=== PATIENT | male | born 1950 | race Caucasian/White ===

== ENCOUNTER 2021-06-27 12:09 | Observation (INO) | payer MEDICARE, OTHER, SELFPAY ==
[2021-06-27] VITALS (9 sets, daily range): BP systolic 118–178; BP diastolic 65–86; PULSE 77–93; RESP 18; TEMP 37.1–38; O2SAT 93–96
[2021-06-27 12:51] LABS: Clarity Clear (Clear)
[2021-06-27 13:07] LABS: Specific Gravity 1.005 (1.005-1.025)
[2021-06-27 13:31] LABS: Abs Immature Grans 0.07 10^3/uL (0.0-0.06); Absolute Monocyte Count 1.34 10^3/uL (0.1-0.8); Absolute Neutrophil Count 11.73 10^3/uL (1.2-6.7); Basophils % 0.1; Eosinophils % 0.4; HCT 38.2 % (40.0-50.0); HGB 13.4 g/dL (13.5-17.5); Immature Grans % 0.5; Lymphocytes % 6.4; MCH 29.7 pg (27.0-33.0); MCHC 35.1 % (32.0-36.0); MCV 84.7 fL (80-95); MPV 8.9 fL (8.0-11.0); Monocytes % 9.5; Neutrophils % 83.1; Nucleated RBC 0 %; Platelet Count 191 10^3/uL (130-400); RBC 4.51 10^6/uL (4.36-5.78); RDW 13.2 % (11.8-14.1); RDW-SD 40.9 fL; WBC 14.11 10^3/uL (4.4-10.8)
[2021-06-27 13:34] LABS: Absolute Basophil Count 0.01 10^3/uL (0.0-0.2); Absolute Eosinophil Count 0.06 10^3/uL (0.0-0.7)
[2021-06-27 13:44] LABS: ALT 156 U/L (16-63); AST 90 U/L (15-37); Albumin 3.9 g/dL (3.4-5.0); Alkaline Phosphatase 118 U/L (46-116); Anion Gap 10.8 mmol/L (3-11); BUN 5 mg/dL (7-18); Bilirubin, Direct 0.2 mg/dL (0.0-0.2); Bilirubin, Total 1.2 mg/dL (0.2-1.0); CO2 26.2 mmol/L (21.0-32.0); CREATININE 0.8 mg/dL (0.70-1.30); Calcium 8.8 mg/dL (8.5-10.1); Chloride 97 mmol/L (98-107); Glucose 143 mg/dL (74-106); Potassium 3.2 mmol/L (3.5-5.1); Sodium 134 mmol/L (136-145); Total Protein 7.3 g/dL (6.4-8.2)
--- NOTE | 2021-06-27 14:04 | DI.CT_ITS ---
Exam(s) CT ABDOMEN PELVIS W EXAM: CT ABDOMEN PELVIS W CLINICAL HISTORY: pelvic pain, fever TECHNIQUE: Imaging Protocol: Axial computed tomography images with coronal and sagittal reformatted images were created and reviewed CONTRAST MATERIAL: Intravenous: Omnipaque 350 Contrast volume:100 mL Oral: No COMPARISON: No exams were available for comparison FINDINGS: The examination is limited due to patient motion artifact. ABDOMEN: Lung Bases: Normal where visualized. Liver: Normal density. No measurable mass. Portal, Superior Mesenteric, and Splenic Veins: Unremarkable. Gallbladder and Biliary Tract: No radiodense calculus or dilation. Pancreas: Normal density, no abnormal calcifications or inflammatory process. Spleen: Normal. Adrenals: No masses seen. Kidneys: Normal size, contour and axis. There is a 3 mm stone at the right UVJ. No significant dilat ation of the right renal collecting system is seen there is symmetric and normal enhancement of the r ight kidney. No masses seen. Abdominal Aorta: Abdominal portion non-dilated. Atherosclerosis. Bowel: No obstruction or bowel wall thickening. No evidence of appendicitis. There are few scattered diverticula in the sigmoid colon, but no evidence of acute diverticulitis. Peritoneal Cavity: No ascites, collection or mesenteric inflammatory response. No free air. Lymph Nodes: Within normal limits. Bones: Within normal limits for the patient's age. Soft Tissues: Unremarkable. PELVIS: Bladder: Symmetric distention, no gross wall thickening. Reproductive Organs: The prostate gland is enlarged. There is mild infiltration around the prostate gland and seminal vesicles. No focal fluid collection is seen to suggest an abscess. Lymph Nodes: Within normal limits. Bones: Within normal limits for the patient's age. IMPRESSION: 1. 3 mm stone at the ostia of the right UVJ, but no hydronephrosis or decreased renal enhancement is noted. 2. Enlarged prostate gland with infiltration in the surrounding soft tissues and the seminal vesicle suspicious for prostatitis. 3. No abscess is identified. 4. Results of this exam have been verbally communicated with provider. RADIATION DOSE DELIVERED: 792.87mGy.cm Total DLP DATA REPOSITORY: All CT scans at this facility are submitted to the National Radiology Data Registry (NRDR) Dose Index Registry (DIR) with the [employer] (ACR). RADIATION OPTIMIZATION: All CT scans at this facility use at least one of these dose optimization te chniques: automated exposure control; mA and/or kV adjustment per patient size (includes targeted exa ms where dose is matched to clinical indication); or iterative reconstruction.
[2021-06-27] MEDS: Omnipaque 350 MG/ML 100 ML BTL IJ (14:09)
--- NOTE | 2021-06-27 14:30 | RT.EKG_ITS ---
APPROVED REPORT Exam: Resting ECG Reason for Exam: hypokalemia, fluoroquinolone initiation Patient Location: E HR:98 bpm ECG Measurements Heart Rate 98 AXIS [place] 170 P 59 QRSd 173 QRS -94 QT 393 T 51 QTc 501 Conclusion Sinus rhythm...normal P axis, V-rate 60- 99 Right bundle branch block...QRSd>120, terminal axis(90,270) ST elevation secondary to IVCD...Multiple VCG criteria. Sinus. RBBB. No STEMI. I have reviewed and interpreted ECG and agree with software generated interpretation.
[2021-06-27] MEDS: fentaNYL 100 MCG/2 ML VIAL 50 MCG IVP (14:34)
[2021-06-27] MEDS: Tamsulosin 0.4 MG CAPCR 0.8 MG PO (15:03)
[2021-06-27] MEDS: POTASSIUM CHLORIDE 20 MEQ, POTASSIUM CHLORIDE 10 MEQ 30 MEQ PO (15:03)
--- NOTE | 2021-06-27 15:04 | ED.GENADUL_ITS ---
Discharge Plan Disposition Patient Disposition: [facility] INPATIENT Condition: Improving Discharge Details Clinical Impression: Prostatitis, Elevated troponin Admit Date/Time: 06/27/21 17:17 Admit Provider: Natalie Frausto Attending Provider: Natalie Frausto Primary Care Provider: Saul Nunez ED Provider: Eric Macias Discharge Data Discharge Date/Time-TO BE ENTERED AT DEPARTURE: 06/27/21 19:16 Medical Decision Making Patient is quite uncomfortable, initial bladder scan 562 Up-to-date recommendation not to place Robertson catheter and patient with suspected bacterial prostatitis, and therefore discussed case with Donna Phelan, physician assistant professor sculpture on-call for urology who recommends the patient is not significantly uncomfortable and CT scan does not show evidence of hydronephrosis to refrain from Robertson catheter placement CT scan does not show evidence of hydronephrosis, patient has a left UVJ stone Previous urine culture positive for Klebsiella pneumonia Repeat bladder scan performed and patient now has 800 cc of fluid in his bladder, therefore quite uncomfortable and Robertson catheter was placed, discussed risk and benefit of Robertson catheter placement and patient agrees to be Levaquin 500 mg ordered Patient meets sepsis criteria with leukocytosis 14,000, tachycardia at 91 upon arrival, and suspected source of infection is prostatitis At this time especially with left UVJ stone I think patient warrants overnight admission for observation He is comfortable with this plan He is feeling symptomatically improved after Robertson catheter placement ED EKG was abnormal with right bundle branch block, no prior to compare for troponin was ordered, unfortunately troponin is elevated at 103, will repeat troponin at 1620 and likely admit patient given elevated troponin, this is likely secondary to strain from being ill prostatitis and urinary retention He will likely need admission to the hospital care will be transferred to Eric Macias PA-C 1600 pending repeat troponin and likely admission to the hospital Eric Macias PA-C 1600 I assumed care of this 70-year-old gentleman from my colleague SERGIO Byrd, please refer to her initial HPI and examination. At time of signout awaiting repeat troponin, initial troponin was 103. Repeat troponin is 101. Patient reports generally not feeling well, nausea, vomiting but denies any overt chest pain. Patient tells me that in 2005 he had a triple bypass with a valve replacement. Patient states that he has not had a stress test since that time but did actually have an echo as an outpatient through his cardiology team, Dr. Cardoso, last month. Given his elevated troponin, will discuss the case with our hospitalist team to admit for a cardiac rule out. Case was discussed with Dr. Frausto who is agreeable to observation admission. This documentation was generated using [employer] dictation system, please disregard any oddities of phrase or misspellings. Medical Records Medical records reviewed: Yes I reviewed the patient's medical records. Lab Data Lab results reviewed: Yes I reviewed the patient's lab results. ECG Data Prior ECG tracings: available for review HPI General Date/Time Provider Initiated Documentation: 06/27/21 12:42 . HPI Narrative: This 70-year-old gentleman with history of tubular adenoma,, hyperlipidemia, hypertension, aortic stenosis, palpitations presents with suprapubic tenderness, and urinary retention. Diagnosed with likely bacterial prostatitis with Klebsiella in urine culture on Flonase. Been taking Cipro twice a day scribe. Feels better symptoms are worsening. Unsure if whether or not he has had fever at home. Reports chills. Denies any chest pain or shortness of breath. Denies any dizziness or weakness. Denies history of similar symptoms in the past. Denies any nausea or vomiting. Related Data Home Medications Medication Instructions Recorded Confirmed amlodipine 10 mg tablet 10 mg PO DAILY 06/27/21 06/27/21 aspirin 81 mg tablet,delayed 81 mg PO DAILY 06/27/21 06/27/21 release atorvastatin 10 mg tablet (Lipitor) 10 mg PO DAILY 06/27/21 06/27/21 ciprofloxacin HCl 500 mg tablet 500 mg PO BID 06/27/21 06/27/21 (Cipro) ibuprofen 600 mg tablet 600 mg PO TID PRN 06/27/21 06/27/21 magnesium 250 mg tablet 250 mg PO DAILY 06/27/21 06/27/21 metoprolol succinate 50 mg 50 mg PO DAILY 06/27/21 06/27/21 tablet,extended release 24 hr phenazopyridine 200 mg tablet 200 mg PO TID PRN 06/27/21 06/27/21 (Pyridium) sildenafil 100 mg tablet (Viagra) 50 mg PO DAILY PRN 06/27/21 06/27/21 tamsulosin 0.4 mg capsule 0.4 mg PO DAILY 06/27/21 06/27/21 Allergies Allergy/AdvReac Type Severity Reaction Status Date / Time amoxicillin AdvReac vomiting Unverified 06/27/21 19:07 General Stated Complaint: Urinary BANDAR: 3 Review of Systems All systems reviewed & are unremarkable except as noted in HPI and below PFSH All Active Problems (Updated 06/29/21 @ 00:01 by CORY LOPEZ) RBBB (Acute) Prostatitis (Acute) Medical History Aortic stenosis CAD (coronary artery disease) Hyperlipidemia Hypertension Palpitations TIA (transient ischemic attack) Tubular adenoma Surgical History Hx of colonoscopy S/P aortic valve replacement with bioprosthetic valve S/P CABG x 3 [place] [facility] [place] History Father Heart disease Cancer prostate cancer Brother Heart disease Hypertension Mother Cancer unknown type Social History Smoking/Tobacco Use Status: Former Tobacco Use tobacco type: cigarettes Quit Date: 03/23/79 Pack-years: 5 Tobacco: How many years used: 5 Smoking risk assessment performed?: Yes Alcohol Intake: current Alcohol Intake frequency: 0-2 drinks per day Alcohol type: hard liquor Details: no h/o EtOH withdrawal Drug use: Never Substance use type: does not use Do you feel safe at home: Yes Do you feel safe in your relationship?: Yes Exam Const General: cooperative and no acute distress Chest Chest: normal inspection of the chest Resp Effort & Inspection: normal respiratory effort Auscultation: clear to auscultation bilaterally Cardio Rate: regular rate Rhythm: regular rhythm GI Inspection: normal to inspection Other: mild suprapubic tenderness Other: deferred Skin General skin exam: no rashes or lesions noted Neuro General: patient alert and patient oriented x3 Extrem General: normal to inspection Course Vital Signs Vital signs: Vital Signs Temperature 37.2 C 06/27/21 12:15 Pulse 91 H 06/27/21 12:15 Respiratory Rate 18 06/27/21 12:15 Blood Pressure 178/86 H 06/27/21 12:15 Pulse Oximetry 94 06/27/21 12:15 Temperature 37.2 C 06/27/21 13:57 Temperature Source Oral 06/27/21 13:57 Pulse 90 06/27/21 13:57 Respiratory Rate 18 06/27/21 12:15 Respiratory Effort 06/27/21 12:20 Blood Pressure 149/80 H 06/27/21 13:57 Blood Pressure Position Sitting 06/27/21 12:15 Pulse Oximetry 94 06/27/21 13:57 Oxygen Delivery Method Room Air 06/27/21 13:57 Oxygen Flow Rate 0 06/27/21 13:57 Pain Level 10 06/27/21 14:34 Lab/Test Results Lab/Test Results: 06/27/21 13:50 Blood Blood Culture - Pending 06/27/21 13:19 Blood Blood Culture - Pending 06/27/21 12:41 Urine - Clean Catch Urine Culture - Pending Laboratory Tests Range/Units 06/27/21 06/27/21 06/27/21 12:41 13:19 13:19 WBC (4.4-10.8) 10^3/uL RBC (4.36-5.78) 10^6/uL Hgb (13.5-17.5) g/dL Hct (40.0-50.0) % MCV (80-95) fL MCH (27.0-33.0) pg MCHC (32.0-36.0) % RDW (11.8-14.1) % Plt Count (130-400) 10^3/uL MPV (8.0-11.0) fL Immature Gran % Neutrophils % Lymphocytes % Monocytes % Eosinophils % Basophils % Nucleated RBC % % Absolute Neutrophils (1.2-6.7) 10^3/uL Absolute Lymphocytes (1.2-3.4) 10^3/uL Absolute Monocytes (0.1-0.8) 10^3/uL Absolute Eosinophils (0.0-0.7) 10^3/uL Absolute Basophils (0.0-0.2) 10^3/uL VBG Lactate (0.6-1.4) mmol/L 1.0 Sodium (136-145) mmol/L 134 L Potassium (3.5-5.1) mmol/L 3.2 L Chloride (98-107) mmol/L 97 L Carbon Dioxide (21.0-32.0) mmol/L 26.2 Anion Gap (3-11) mmol/L 10.8 BUN (7-18) mg/dL 5 L Creatinine (0.70-1.30) mg/dL 0.8 Estimated GFR/1.73 m2 (mL/min/1.73m2) >= 60.00 Glucose (74-106) mg/dL 143 H Calcium (8.5-10.1) mg/dL 8.8 Total Bilirubin (0.2-1.0) mg/dL 1.2 H Conjugated Bilirubin (0.0-0.2) mg/dL 0.2 AST (15-37) U/L 90 H ALT (16-63) U/L 156 H Alkaline Phosphatase (46-116) U/L 118 H Total Protein (6.4-8.2) g/dL 7.3 Albumin (3.4-5.0) g/dL 3.9 Urine Color (Yellow) [place] Urine Clarity (Clear) Clear Urine pH (5-8) Ur Specific [place] (1.005-1.025) 1.005 Urine Protein (Negative) mg/dL Urine Ketones (Negative) mg/dL Urine Blood (Negative) Urine Nitrite (Negative) Urine Bilirubin (Negative) Urine Urobilinogen (Up TO 0.2) EU/dL Ur Leukocyte Esterase (Negative) Urine Glucose (Negative) mg/dL Range/Units 06/27/21 13:19 WBC (4.4-10.8) 10^3/uL 14.11 H RBC (4.36-5.78) 10^6/uL 4.51 Hgb (13.5-17.5) g/dL 13.4 L Hct (40.0-50.0) % 38.2 L MCV (80-95) fL 84.7 MCH (27.0-33.0) pg 29.7 MCHC (32.0-36.0) % 35.1 RDW (11.8-14.1) % 13.2 Plt Count (130-400) 10^3/uL 191 MPV (8.0-11.0) fL 8.9 Immature Gran % 0.5 Neutrophils % 83.1 Lymphocytes % 6.4 Monocytes % 9.5 Eosinophils % 0.4 Basophils % 0.1 Nucleated RBC % % 0 Absolute Neutrophils (1.2-6.7) 10^3/uL 11.73 H Absolute Lymphocytes (1.2-3.4) 10^3/uL 0.90 L Absolute Monocytes (0.1-0.8) 10^3/uL 1.34 H Absolute Eosinophils (0.0-0.7) 10^3/uL 0.06 Absolute Basophils (0.0-0.2) 10^3/uL 0.01 VBG Lactate (0.6-1.4) mmol/L Sodium (136-145) mmol/L Potassium (3.5-5.1) mmol/L Chloride (98-107) mmol/L Carbon Dioxide (21.0-32.0) mmol/L Anion Gap (3-11) mmol/L BUN (7-18) mg/dL Creatinine (0.70-1.30) mg/dL Estimated GFR/1.73 m2 (mL/min/1.73m2) Glucose (74-106) mg/dL Calcium (8.5-10.1) mg/dL Total Bilirubin (0.2-1.0) mg/dL Conjugated Bilirubin (0.0-0.2) mg/dL AST (15-37) U/L ALT (16-63) U/L Alkaline Phosphatase (46-116) U/L Total Protein (6.4-8.2) g/dL Albumin (3.4-5.0) g/dL Urine Color (Yellow) Urine Clarity (Clear) Urine pH (5-8) Ur Specific [place] (1.005-1.025) Urine Protein (Negative) mg/dL Urine Ketones (Negative) mg/dL Urine Blood (Negative) Urine Nitrite (Negative) Urine Bilirubin (Negative) Urine Urobilinogen (Up TO 0.2) EU/dL Ur Leukocyte Esterase (Negative) Urine Glucose (Negative) mg/dL Sign Out Sign Out Data: Sign Out Comment: pending troponin, admission for nstemi and prostatis Last updated by Sonali Byrd PA at 06/27/21 16:47 PAWSS Have you Been Recently Intoxicated or Drunk Within the Last 30 days?: No Have you Ever Experienced Previous Episodes of Alcohol Withdrawal?: No Have you ever Experienced Withdrawal Seizures?: No Have you ever Experienced Delirium Tremens(DT)s?: No Have you ever undergone Alcohol Rehabilitation Treatment (i.e, inpt ot outpatient treatment programs)?: No Have you ever Experienced Blackouts?: No Have you ever Combined Alcohol with other Downers within the last 90 days?: No Have you ever Combined Alcohol with any other Substance of Abuse during the last 90 days?: No Positive Blood Alcohol level on Presentation? [PCS.BAL]: No Evidence of Increased Autonomic Activity (i.e. HR>120, tremor, sweating, agitation, nausea)?: No Result: 0
[2021-06-27] MEDS: levoFLOXacin 500 MG/100 ML BAG 100 MG IVPB (15:06)
[2021-06-27] MEDS: Lidocaine 2% Jelly 11 ML SYR UR (15:10)
[2021-06-27 15:31] LABS: Troponin I 103 ng/L (<or=60)
[2021-06-27] MEDS: Normal Saline 1,000 ML 1000 ML IV (15:46)
[2021-06-27 16:46] LABS: Troponin I 101 ng/L (<or=60)
[2021-06-27 17:49] LABS: Source Nasal/Nares
[2021-06-27 18:26] LABS: COVID-19 PCR Negative (Negative)
[2021-06-27] MEDS: Acetaminophen 325 MG TAB PO ×2 (18:51→22:28)
--- NOTE | 2021-06-27 19:15 | W.PM.HP.N ---
Date of service: 06/27/21 Time of Service: 19:16 Assessment and Plan Assessment and plan (1) Prostatitis: Status: Acute Assessment and plan: Due to Klebsiella, present on admission, sensitive to fluoroquinolones.Agree with continuing levofloxacin initiated in the ED. Will need urology follow up. I am not sure if we have urology in house tomorrow. (2) Elevated troponin: Status: Acute Assessment and plan: Suspect type 2 NSTEMI due to acute infection. [place]btain [place] [facility] [place]. Echo tomorrow. 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 (3) RBBB: Status: Acute Assessment and plan: Unsure of chronicity of this, nor is it an indication of acute ischemia. Obtain [facility] [place]. (4) Urinary retention: Status: Acute Assessment and plan: S/p hubbard. Perform hubbard teaching. Started on flomax. Urology consult vs outpatient follow up depending on urology availability. (5) DVT prophylaxis: Status: Acute Assessment and plan: SC lovenox (6) Discharge planning issues: Status: Acute Assessment and plan: Full code Anticipate discharge home tomorrow History of Present Illness History of Present Illness Chief Complaint: Suprapubic tenderness Narrative: Mr Santos is a 70 year old male recently diagnosed with Klebsiella prostatitis ([facility] 06/23/21) with PMHx of CAD s/p CABG x 3 in [place] [place] TIA, HTN, hyperlipidemia, Aortic stenosis s/p bioprosthetic aortic valve, and tubular adenoma, who presented to [facility] ED today c/o suprapubic tenderness and found to be retaining urine (800 cc). The patient had initially presented to his PCP's office who referred him to our ED with these sx. A hubbard catheter was placed for urinary retention. His imagine revealed a left UVJ stone. The patient was afebrile and had a leucocytosis of 14. A screening EKG was obtained prior to giving the patient floroquinolone in the ED which revealed a RBBB. A screening troponin was ordered which was 103 ng/L. The patient specifically denies chest pain, shortness of breath, palpitations at home. Repeat troponin was 101. Observation on hospitalist service was requested. Review of Systems All systems reviewed & are unremarkable except as noted in HPI and below PFSH All Active Problems (Updated 06/27/21 @ 19:54 by Natalie Frausto MD) Discharge planning issues (Acute) DVT prophylaxis (Acute) Urinary retention (Acute) RBBB (Acute) Prostatitis (Acute) Elevated troponin (Acute) Medical History (Updated 06/27/21 @ 19:54 by Natalie Frausto MD) Aortic stenosis CAD (coronary artery disease) Hyperlipidemia Hypertension Palpitations TIA (transient ischemic attack) Tubular adenoma Surgical History (Updated 06/27/21 @ 19:54 by Natalie Frausto MD) Hx of colonoscopy S/P aortic valve replacement with bioprosthetic valve S/P CABG x 3 2016 [facility] [place] Family History (Updated 06/27/21 @ 19:55 by Natalie Frausto MD) Father Heart disease Cancer prostate cancer Brother Heart disease Hypertension Mother Cancer unknown type Social History (Updated 06/27/21 @ 19:56 by Natalie Frausto MD) Smoking/Tobacco Use Status: Former Tobacco Use tobacco type: cigarettes Quit Date: 03/23/79 Pack-years: 5 Tobacco: How many years used: 5 Smoking risk assessment performed?: Yes Alcohol Intake: current Alcohol Intake frequency: 0-2 drinks per day Alcohol type: hard liquor Details: no h/o EtOH withdrawal Drug use: Never Substance use type: does not use Do you feel safe at home: Yes Do you feel safe in your relationship?: Yes Meds Allergies and Home Medications Allergies Allergy/AdvReac Type Severity Reaction Status Date / Time amoxicillin AdvReac vomiting Unverified 06/27/21 19:07 Home Medications Medication Instructions Recorded Confirmed Type amlodipine 10 mg tablet 10 mg PO DAILY 06/27/21 06/27/21 History aspirin 81 mg tablet,delayed 81 mg PO DAILY 06/27/21 06/27/21 History release atorvastatin 10 mg tablet (Lipitor) 10 mg PO DAILY 06/27/21 06/27/21 History ciprofloxacin HCl 500 mg tablet 500 mg PO BID 06/27/21 06/27/21 History (Cipro) ibuprofen 600 mg tablet 600 mg PO TID PRN 06/27/21 06/27/21 History magnesium 250 mg tablet 250 mg PO DAILY 06/27/21 06/27/21 History metoprolol succinate 50 mg 50 mg PO DAILY 06/27/21 06/27/21 History tablet,extended release 24 hr phenazopyridine 200 mg tablet 200 mg PO TID PRN 06/27/21 06/27/21 History (Pyridium) sildenafil 100 mg tablet (Viagra) 50 mg PO DAILY PRN 06/27/21 06/27/21 History tamsulosin 0.4 mg capsule 0.4 mg PO DAILY 06/27/21 06/27/21 History Exam Narrative Exam Narrative: General: Very pleasant male who is A&ox3, appears comfortable in bed Neurological: A&Ox3, no focal deficits Psychiatric: Appropriate speech pattern/content Skin: Visible skin intact HEENT: Atraumatic, normocephalic, EOMI, MMM, clear oropharynx, no submandibular or cervical lymphadenopathy, no goiter or JVD Cardiovascular: RRR, no m/r/g Lungs: CTAB Gastrointestinal: soft, nontender, nondistended Genitourinary: has a hubbard Extremities: no edema BLE's, 1+ pedal pulses B Results Imaging Additional studies: CT abdomen/pelvis: 1. 3 mm stone at the ostia of the right UVJ, but no hydronephrosis or decreased renal enhancement is noted. 2. Enlarged prostate gland with infiltration in the surrounding soft tissues and the seminal vesicle suspicious for prostatitis. 3. No abscess is identified. EKG: ST, RBBB, no prior for comparison, no acute ischemia Labs Result diagrams: 06/27/21 13:19 06/27/21 13:19 Labs: Laboratory Results - last 24 hr 06/27/21 06/27/21 06/27/21 12:41 13:19 13:19 WBC RBC Hgb Hct MCV MCH MCHC RDW Plt Count MPV Immature Gran % Neutrophils % Lymphocytes % Monocytes % Eosinophils % Basophils % Nucleated RBC % Absolute Neutrophils Absolute Lymphocytes Absolute Monocytes Absolute Eosinophils Absolute Basophils VBG Lactate 1.0 Sodium 134 L Potassium 3.2 L Chloride 97 L Carbon Dioxide 26.2 Anion Gap 10.8 BUN 5 L Creatinine 0.8 Estimated GFR/1.73 m2 >= 60.00 Glucose 143 H Calcium 8.8 Total Bilirubin 1.2 H Conjugated Bilirubin 0.2 AST 90 H ALT 156 H Alkaline Phosphatase 118 H Troponin I Total Protein 7.3 Albumin 3.9 Urine Color [place] Urine Clarity Clear Urine pH Ur Specific [place] 1.005 Urine Protein Urine Ketones Urine Blood Urine Nitrite Urine Bilirubin Urine Urobilinogen Ur Leukocyte Esterase Urine Glucose COVID-19 Source SARS-CoV-2 (PCR) 06/27/21 06/27/21 06/27/21 13:19 13:19 16:20 WBC 14.11 H RBC 4.51 Hgb 13.4 L Hct 38.2 L MCV 84.7 MCH 29.7 MCHC 35.1 RDW 13.2 Plt Count 191 MPV 8.9 Immature Gran % 0.5 Neutrophils % 83.1 Lymphocytes % 6.4 Monocytes % 9.5 Eosinophils % 0.4 Basophils % 0.1 Nucleated RBC % 0 Absolute Neutrophils 11.73 H Absolute Lymphocytes 0.90 L Absolute Monocytes 1.34 H Absolute Eosinophils 0.06 Absolute Basophils 0.01 VBG Lactate Sodium Potassium Chloride Carbon Dioxide Anion Gap BUN Creatinine Estimated GFR/1.73 m2 Glucose Calcium Total Bilirubin Conjugated Bilirubin AST ALT Alkaline Phosphatase Troponin I 103 H* 101 H* Total Protein Albumin Urine Color Urine Clarity Urine pH Ur Specific [place] Urine Protein Urine Ketones Urine Blood Urine Nitrite Urine Bilirubin Urine Urobilinogen Ur Leukocyte Esterase Urine Glucose COVID-19 Source SARS-CoV-2 (PCR) 06/27/21 17:40 WBC RBC Hgb Hct MCV MCH MCHC RDW Plt Count MPV Immature Gran % Neutrophils % Lymphocytes % Monocytes % Eosinophils % Basophils % Nucleated RBC % Absolute Neutrophils Absolute Lymphocytes Absolute Monocytes Absolute Eosinophils Absolute Basophils VBG Lactate Sodium Potassium Chloride Carbon Dioxide Anion Gap BUN Creatinine Estimated GFR/1.73 m2 Glucose Calcium Total Bilirubin Conjugated Bilirubin AST ALT Alkaline Phosphatase Troponin I Total Protein Albumin Urine Color Urine Clarity Urine pH Ur Specific [place] Urine Protein Urine Ketones Urine Blood Urine Nitrite Urine Bilirubin Urine Urobilinogen Ur Leukocyte Esterase Urine Glucose COVID-19 Source Nasal/Nares SARS-CoV-2 (PCR) Negative Last Vital Signs Temp 37.1 C 06/27/21 18:30 Pulse 93 H 06/27/21 18:30 Resp 18 06/27/21 12:15 BP 122/83 06/27/21 18:30 Pulse Ox 96 06/27/21 18:30 PAWSS Have you Been Recently Intoxicated or Drunk Within the Last 30 days?: No Have you Ever Experienced Previous Episodes of Alcohol Withdrawal?: No Have you ever Experienced Withdrawal Seizures?: No Have you ever Experienced Delirium Tremens(DT)s?: No Have you ever undergone Alcohol Rehabilitation Treatment (i.e, inpt ot outpatient treatment programs)?: No Have you ever Experienced Blackouts?: No Have you ever Combined Alcohol with other Downers within the last 90 days?: No Have you ever Combined Alcohol with any other Substance of Abuse during the last 90 days?: No Positive Blood Alcohol level on Presentation? [PCS.BAL]: No Evidence of Increased Autonomic Activity (i.e. HR>120, tremor, sweating, agitation, nausea)?: No Result: 0
[2021-06-27 19:28] LABS: Bacteria Negative HPF (Negative); Epithelial Cells Few HPF (Negative); RBC Negative HPF (0-2); WBC Negative HPF (0-5)
[2021-06-27 19:29] LABS: Casts Negative LPF (Negative); Crystals Negative HPF (Negative); Mucus Trace (Negative)
[2021-06-27 19:31] LABS: C & S Indicated? C&S Done As Ordered
[2021-06-27] MEDS: Atorvastatin 20 MG TAB 10 MG PO (20:37)
[2021-06-27] MEDS: Enoxaparin 40 MG/0.4 ML SYR SC (20:38)
[2021-06-28 03:04] VITALS: BP 138/75; PULSE 77; RESP 18; TEMP 36.9; O2SAT 95
[2021-06-28 06:48] LABS: Abs Immature Grans 0.08 10^3/uL (0.0-0.06); Absolute Eosinophil Count 0.06 10^3/uL (0.0-0.7); Absolute Lymphocyte Count 0.87 10^3/uL (1.2-3.4); Absolute Neutrophil Count 10.64 10^3/uL (1.2-6.7); Basophils % 0.2; Eosinophils % 0.5; HCT 37.3 % (40.0-50.0); HGB 12.9 g/dL (13.5-17.5); Immature Grans % 0.6; Lymphocytes % 6.9; MCH 29.9 pg (27.0-33.0); MCHC 34.6 % (32.0-36.0); MCV 86.3 fL (80-95); MPV 9.2 fL (8.0-11.0); Monocytes % 7.7; Neutrophils % 84.1; Nucleated RBC 0 %; Platelet Count 166 10^3/uL (130-400); RBC 4.32 10^6/uL (4.36-5.78); RDW 13.4 % (11.8-14.1); RDW-SD 42.3 fL; WBC 12.65 10^3/uL (4.4-10.8)
[2021-06-28 06:51] LABS: Absolute Basophil Count 0.03 10^3/uL (0.0-0.2); Absolute Monocyte Count 0.97 10^3/uL (0.1-0.8)
[2021-06-28 07:00] VITALS: PULSE 66
[2021-06-28 07:43] LABS: ALT 124 U/L (16-63); AST 61 U/L (15-37); Albumin 3.5 g/dL (3.4-5.0); Alkaline Phosphatase 114 U/L (46-116); Anion Gap 8.1 mmol/L (3-11); BUN 6 mg/dL (7-18); Bilirubin, Direct 0.3 mg/dL (0.0-0.2); Bilirubin, Total 1.5 mg/dL (0.2-1.0); C-Reactive Protein 10.45 mg/dL (0.0-0.3); CO2 25.9 mmol/L (21.0-32.0); CREATININE 0.9 mg/dL (0.70-1.30); Calcium 8.6 mg/dL (8.5-10.1); Chloride 102 mmol/L (98-107); Glucose 155 mg/dL (74-106); Magnesium 1.9 mg/dL (1.8-2.4); NT-proBNP 731 pg/mL (<300); Potassium 3.6 mmol/L (3.5-5.1); Sodium 136 mmol/L (136-145); TSH (W/Ref FT4) 0.92 uIU/mL (0.36-3.74); Total Protein 7.2 g/dL (6.4-8.2)
[2021-06-28 07:48] LABS: Hemoglobin A1C 5.8 % (<5.7)
[2021-06-28 07:49] LABS: Troponin I 100 ng/L (<or=60)
--- NOTE | 2021-06-28 08:00 | RT.EKG_ITS ---
APPROVED REPORT Exam: Resting ECG Reason for Exam: EKG done Patient Location: I HR:71 bpm ECG Measurements Heart Rate 71 AXIS AL 179 P 30 QRSd 174 QRS -89 QT 435 T 36 QTc 473 Conclusion Sinus rhythm...normal P axis, V-rate 50- 99 Right bundle branch block...QRSd>120, terminal axis(90,270)
[2021-06-28 08:07] LABS: Calculated LDL 72 mg/dL (<100); Cholesterol 109 mg/dL (<200); HDL Cholesterol 15 mg/dL (40-60); Triglyceride 114 mg/dL (<150)
[2021-06-28] MEDS: Aspirin E.C. 81 MG TABEC PO (08:14)
[2021-06-28] MEDS: Tamsulosin 0.4 MG CAPCR PO (08:14)
[2021-06-28] MEDS: Metoprolol CR 50 MG TABCR PO (08:14)
[2021-06-28] MEDS: Normal Saline Flush 10 ML SYR IVP (08:19)
[2021-06-28] MEDS: Magnesium Gluconate 500 MG TAB 250 MG PO (09:10)
--- NOTE | 2021-06-28 09:31 | PDOC.CMIN ---
- If Service Date Differs Date of service: 06/28/21 Time of Service: 09:31 Care Management Initial Assess REASON FOR HOSPITALIZATION:: Prostatitis, Elevated Troponin, RBBB, Urinary Retention PAST MEDICAL HISTORY/PAST SURGICAL HISTORY:: All Active Problems (Updated 06/27/21 @ 19:54 by Natalie Frausto MD). Discharge planning issues (Acute). DVT prophylaxis (Acute). Urinary retention (Acute). RBBB (Acute). Prostatitis (Acute). Elevated troponin (Acute). Medical History (Updated 06/27/21 @ 19:54 by Natalie Frausto MD). Aortic stenosis. CAD (coronary artery disease). Hyperlipidemia. Hypertension. Palpitations. TIA (transient ischemic attack). Tubular adenoma. Surgical History (Updated 06/27/21 @ 19:54 by Natalie Frausto MD). Hx of colonoscopy. S/P aortic valve replacement with bioprosthetic valve. S/P CABG x 3. 2016 [facility] – [place] PREVIOUS FUNCTIONAL STATUS/SOCIAL/FAMILY SUPPORTS:: Mickey lives in [facility]. He is independent at baseline. ADVANCE DIRECTIVES:: None on file, CM will offer forms. Has patient been provided with info about the portal/API?: Yes Did the patient sign up for the portal?: No CODE STATUS:: Full Code INSURANCE COVERAGE / FINANCIAL ISSUES:: [employer]. Medicare CURRENT HOME/COMMUNITY SERVICES/EQUIPMENT:: None PRIMARY CARE PHYSICIAN:: Saul Nunez PATIENT/FAMILY EDUCATION NEEDS:: Review discharge instructions, limitations, medications and plan to follow up with community providers. ask me three. TRANSPORTATION:: via private vehicle with family. PLAN:: Anticipate Mickey will discharge home via private vehicle with family when medically cleared by provider. He will likely need hubbard catheter education. He will need outpatient follow up appointments with his PCP and Urology. CM will continue to support discharge planning needs.
--- NOTE | 2021-06-28 11:30 | DI.US_ITS ---
APPROVED REPORT EXAM: Comprehensive 2D, Doppler, and color-flow Echocardiogram Patient Location: In-Patient Room/Bed: [address] C[employer] Maker: Ginna Rhoades RDCS (AE) Indications: Elevated troponin, Bioprosthetic aortic valve, CAD, CABG Other Information Study Quality: Adequate Conclusion Left ventricular wall thickness and chamber size. Estimated ejection fraction is 60%. Wall motion i s normal Normal right ventricular size and systolic function Both atria are normal in size Bioprosthetic aortic valve with appropriate function There is no additional significant structural heart disease Mildly dilated ascending aorta measuring 3.6 cm Wall motion Left Ventricle The left ventricle is normal size. The left ventricular systolic function is normal. The left ventric ular ejection fraction is within the normal range. There is normal left ventricular wall thickness. T here is normal LV segmental wall motion. There is no ventricular septal defect visualized. LVEF is 59 %. Right Ventricle The right ventricle is normal size. Right ventricular systolic function is grossly normal. The RVSP i s 16.6mmHg. Atria The left atrium size is normal. The right atrium size is normal. The interatrial septum is intact wit h no evidence for an atrial septal defect. Aortic Valve Aortic valve is trileaflet. Trace aortic regurgitation. Bioprosthetic aortic valve is present. Mitral Valve Mild mitral annular calcification. No evidence of mitral valve stenosis. Trace to mild mitral regurgi tation. Tricuspid Valve The tricuspid valve is normal in structure. There is no tricuspid valve stenosis. Trace tricuspid reg urgitation. Pulmonic Valve The pulmonary valve is normal in structure. There is no pulmonic valvular stenosis. Trace pulmonic re gurgitation. Great Vessels The aortic root is normal in size. The ascending aorta is mildly dilated. Aortic arch is normal in ca liber. IVC is normal in size and collapses >50% with inspiration. Pericardium There is no pericardial effusion. 2D Dimensions IVSD d PLAX 1.07 cm M: 0.6-1.2 LV Vol A2C d MOD 106.7 mL LVPW d PLAX 1.07 cm M: 0.6 - 1.2 LV Vol A4C d MOD 154.7 mL LVID d PLAX 5.05 cm M: 4.2 - 5.8 LA vol/ BSA A2C s A-L 23.3 mL/m2 LVDs 3.40 cm M: 2.5 - 4.0 LA vol/ BSA A4C s A-L 26.7 mL/m2 Ao Root d 2.69 cm M: 3.1 - 3.7 LA Vol/ BSA Biplane s A-L 25.4 mL/m2 RA Area A4C 14.42 cm2 LA Area A4C s MOD 17.53 cm2 RA Vol/ BSA A4C s A-L 19.6 mL/m2 LA Area A2C s MOD 16.02 cm2 Ao Asc Diam d 3.60 cm M: 2.6 - 3.4 LV EF A4C MOD 59.5 % LV EF Teichholz 60.6 % LV EF A2C MOD 58.4 % LVEF (Wray's) 59.25 % M: 52 - 72 LV EF Biplane MOD 59.3 % LV Volume 101.44 mL M: 62 - 150 SV 78.27 mL LV Volume Index 54.53 mL/m2 M: 34 - 74 SV Index 41.94 mL/m2 LV Vol Biplane MOD 132.1 mL FS 32.50 % M-Mode TAPSE 1.25 cm (M/F) >1.7 LV Diastology MV E' medial 0.056 (>0.07 m/s) E/A Ratio 1.1 LV E/e MED 18.80 (<14) MV E Vmax 1.06 (0.4-1.3 m/s) MV E' lateral 0.122 (>0.1 m/s) MV A Vmax 0.95 (0.4-1.3 m/s) LV E/e LAT 8.65 (<14) MV E/A Ratio 1.06 MV E/E' medial 18.80 MV E/E' lateral 8.65 Aortic Valve LVOT Area 2.72 cm2 AoV Area Vmax 1.46 cm2 LVOT Vmax 1.54 m/s AoV Area/ BSA (Vmax) 0.78 cm2/m2 LVOT Mean Benson. 1.19 m/s JUDE Mean Benson. 1.64 cm2 LVOT Peak Grad 9.4 mmHg JUDE Mean Benson. Index 0.88 cm2/m2 LVOT Mean Grad 6.3 mmHg AR DT 3255 msec LVOT VTI 0.310 m AR PHT 944 msec LVOT Diam s 1.85 cm AoV Vmax 2.86 m/s Velocity Ratio 0.53 AoV Mean Benson. 1.97 m/s AoV Peak Grad 32.8 mmHg LVOT SV 84.35 mL AoV Mean Grad 17.5 mmHg AoV VTI 0.499 m AoV Area VTI 1.69 cm2 AoV Area/ BSA (VTI) 0.91 cm/m2 Mitral Valve MV DT 282 (160-240 msec) MV PHT 82 msec MV Area PHT 2.69 cm2 MV VTI 0.428 m MV Area VTI 1.97 (4.0-6.0 cm2) Pulmonary Valve PV Vmax 1.20 (0.5-1.5 m/s) RVOT Peak Gr. 2.07 mmHg PV Peak Grad 5.8 mmHg RVOT Mean Gr. 1.05 mmHg PV Mean Grad 2.8 mmHg RVOT VTI 0.135 m PV VTI 0.218 m RVOT Vmax 0.72 m/s Tricuspid Valve TR Peak Grad 13.6 mmHg TR Vmax 1.85 m/s RA Pressure 3.00 mmHg RVSP (TR) 16.6 mmHg
--- NOTE | 2021-06-28 12:18 | W.PM.DS.N ---
Date of service: 06/28/21 Time of Service: 12:22 DS: Diagnosis Discharge Diagnosis (1) Prostatitis: Start date: 06/28/21 Start time: 12:23 Status: Acute Asessment and Plan: This was d/t klebsiella, placed on fluoroquinoloes. He was continued on levoflaxacin, however he does have cipro at home and recommend that he continue Ciproflaxicin at home. On admission hubbard catheter was placed, he was dieresed for 2 L in the ED per patient. CT revealed 3 mm stone at the ostia of right UVJ, however no hydronephrosis. Enlarged prostate gland with infiltration in surrounding soft tissues and seminal vesicle suspicious for prostatitis. No abscess identified. At this time urology is not available. Will have nursing make sure he has good hubbard care, follow up with Dr. Zapata next week in the office, placed on flomax, will continue. (2) Elevated troponin: Start date: 06/28/21 Start time: 12:30 Status: Acute Asessment and Plan: Patient denies CP, states Echo, last month with cardiology did not feel he needed stress test. Will order outpatient echo and defer to Cardiology for outpatient stress again. Likely d/t stress of infection and large volume diureses. (3) RBBB: Start date: 06/28/21 Start time: 12:32 Status: Acute Asessment and Plan: NSR with RBBB on EKG, last night with repeat EKG this am again NSR RBBB He recently had an echo and cardiology per patient did not feel he needed a stress test. We are unable to locate those records. He stated done at [place] last, month therefore will be done as an outpatient. He can discuss if further treatment needs to be done. (4) Urinary retention: Start date: 06/28/21 Start time: 12:38 Status: Acute Asessment and Plan: continue hubbard and flomax 0.8 given as above discussed with Dr. Frausto Discharge Plan Disposition Patient Disposition: HOME Condition: Improving Discharge Details Reason For Visit: Prostatitis,Urinary Retention,Elevated Troponin Admit Date/Time: 06/27/21 17:17 Admit Provider: Natalie Frausto Attending Provider: Natalie Frausto Primary Care Provider: None,None Hospital Course Hospital Course: 70 y.o male admitted to [facility] after [facility]. PMHx includes CAD, s/p CABG 2017, TIA, HTN, HLD, Aortic Stenosis, he presented with pain to his suprapubic area and was found to have urinary retention. Initially he was at his PCP's office who refereed him to the ED. A catheter was placed for retention. CT scan done, revealin. 3 mm stone at the ostia of the right UVJ, but no hydronephrosis or decreased renal enhancement is noted. 2. Enlarged prostate gland with infiltration in the surrounding soft tissues and the seminal vesicle suspicious for prostatitis. 3. No abscess is identified. Unfortunately urology was not available at this time, therefore he was started on flomax and levoflaxicin. He is feeling better. he can be discharged home with a hubbard. He did have elevated trops on admission (read above). Outpatient echo. He can take his cipro at home. Continue that. Follow up with PCP next week, follow up with Dr. Zapata next week. Hubbard care done by nursing and he can be discharged home.He denies CP,S OB, N/V/D Home Meds and New Rx's Prescriptions: Continued amlodipine 10 mg Tablet 10 mg PO DAILY 0RF aspirin 81 mg Tablet,Delayed Release (Dr/Ec) 81 mg PO DAILY 0RF ibuprofen 600 mg Tablet 600 mg PO TID PRN0RF atorvastatin [Lipitor] 10 mg Tablet 10 mg PO DAILY 0RF Rx Instructions: may be higher dosing magnesium 250 mg Tablet 250 mg PO DAILY 0RF metoprolol succinate 50 mg Tablet Extended Release 24 Hr 50 mg PO DAILY 0RF tamsulosin 0.4 mg Capsule 0.4 mg PO DAILY 0RF ciprofloxacin HCl [Cipro] 500 mg Tablet 500 mg PO BID 0RF Rx Instructions: 21 days phenazopyridine [Pyridium] 200 mg Tablet 200 mg PO TID PRN0RF Held sildenafil [Viagra] 100 mg Tablet 50 mg PO DAILY PRN0RF Hold Instructions: Resume on 08/16/21. while you have the hubbard catheter in and you have prostatitis Discharge Instructions Instructions: Prostatitis (DC), Urinary Retention in Men (GEN), Hubbard Catheter Placement and Care (GEN) Additional Instructions: Good hubbard catheter care is important to prevent further infection Follow up with your primary provider next week as scheduled Follow up with Dr. Zapata as scheduled You do have a stone on your right side. It is not blocking anything at this time. If you start to have symptoms where you can not pee with the catheter or severe pain you need to go to the emergency room immediately Referrals: [facility] Radiology [Other] (Office will call you with appointment. ) Terry Zapata MD [ [facility] STAFF PHYSICIAN] - 07/01/21 2:00 pm Saul Nunez [ CONSULTING PHYSICIAN] - 07/04/21 12:30 pm Activity:: Activity as Tolerated Equipment/Supplies:: Hubbard catheter Diet:: Low Sodium Discharge Orders Discharge Orders: Discharge Order (Routine); Ordered 06/28/21 Ordered By: Qi Rodriguez Other Ambulatory Orders: US echocardiogram (Routine) Location: None Selected Ordered By: Qi Rodriguez DS: Summary Time Spent with Patient providing and/or coordinating discharge services: Less than 30 minutes Status at Discharge Functional status at discharge: independent ambulation Overall status at discharge: patient is progressing back to baseline Mental Status: mental status grossly normal Speech and Movement: speech and movement normal Mood: congruent mood Affect: normal affect Exam Narrative Exam Narrative: General: Very pleasant male who is A&ox3, appears comfortable in bed Neurological: A&Ox3, no focal deficits Psychiatric: Appropriate speech pattern/content Skin: Visible skin intact HEENT: Atraumatic, normocephalic, EOMI, MMM, clear oropharynx, no submandibular or cervical lymphadenopathy, no goiter or JVD Cardiovascular: RRR, no m/r/g Lungs: CTAB Gastrointestinal: soft, nontender, nondistended Genitourinary: has a hubbard, draining clear yellow urine. Extremities: no edema BLE's, 1+ pedal pulses B Psych Mental Status: mental status grossly normal Speech and Movement: speech and movement normal Mood: congruent mood Affect: normal affect DS: Data Vitals/I&O Vitals and I&O: Vital Signs Temperature 36.9 C 06/28/21 03:04 Temperature Source Skin 06/28/21 03:04 Pulse 66 06/28/21 07:00 Pulse Rhythm Regular 06/28/21 11:44 Respiratory Rate 18 06/28/21 03:04 Respiratory Effort Non-Labored 06/28/21 11:44 Respiratory Depth Normal 06/28/21 11:44 Respiratory Pattern Normal 06/28/21 11:44 Blood Pressure 138/75 06/28/21 03:04 Blood Pressure Position Sitting 06/27/21 12:15 Pulse Oximetry 95 06/28/21 03:04 Oxygen Delivery Method Room Air 06/28/21 03:04 Oxygen Flow Rate 0 06/28/21 03:04 Pain Level 0 06/28/21 03:04 Intake & Output 06/27/21 06/28/21 06/28/21 23:59 11:59 23:59 Intake Total 100 / 100 Output Total 2300 / 2300 2175 / 2175 Balance -2200 / -2200 -2175 / -2175 Weight 81.193 kg 79.6 kg Intake: IV 100 / 100 Output: Urine 2300 / 2300 2175 / 2175 Other: Urine Color [place] Yellow Urine Appearance Clear Clear Comment will discharge with hubbard in situ, he will have an urology consult outpatient Data Completed and Pending Completed studies during hospitalization [Text1]: Exam(s) a CT:CT abdomen & pelvis w Exam(s) CT ABDOMEN ? PELVIS W EXAM:? CT ABDOMEN ? PELVIS W CLINICAL HISTORY: ? pelvic pain, fever ? TECHNIQUE:? Imaging Protocol: Axial computed tomography images with coronal and sagittal reformatted images were created and reviewed CONTRAST MATERIAL:? Intravenous: Omnipaque 350 Contrast volume:100 mL Oral: No COMPARISON:? No exams were available for comparison FINDINGS: The examination is limited due to patient motion artifact.? ABDOMEN: Lung Bases: Normal where visualized. Liver: Normal density. No measurable mass. Portal, Superior Mesenteric, and Splenic Veins: Unremarkable.? Gallbladder and Biliary Tract: No radiodense calculus or dilation. Pancreas: Normal density, no abnormal calcifications or inflammatory process. Spleen: Normal. Adrenals: No masses seen. Kidneys: Normal size, contour and axis. There is a 3 mm stone at the right UVJ.? No significant dilatation of the right renal collecting system is seen there is symmetric and normal enhancement of the right kidney.? No masses seen. Abdominal Aorta: Abdominal portion non-dilated. Atherosclerosis. Bowel: No obstruction or bowel wall thickening. No evidence of appendicitis.? There are few scattered diverticula in the sigmoid colon, but no evidence of acute diverticulitis. Peritoneal Cavity: No ascites, collection or mesenteric inflammatory response.? No free air. Lymph Nodes: Within normal limits. Bones: Within normal limits for the patient's age.? Soft Tissues: Unremarkable. PELVIS: Bladder: Symmetric distention, no gross wall thickening. Reproductive Organs: The prostate gland is enlarged.? There is mild infiltration around the prostate gland and seminal vesicles.? No focal fluid collection is seen to suggest an abscess.? Lymph Nodes: Within normal limits. Bones: Within normal limits for the patient's age.? IMPRESSION: 1. 3 mm stone at the ostia of the right UVJ, but no hydronephrosis or decreased renal enhancement is noted. 2. Enlarged prostate gland with infiltration in the surrounding soft tissues and the seminal vesicle suspicious for prostatitis. 3. No abscess is identified. 4. Results of this exam have been verbally communicated with provider.? Labs on day of discharge: Labs from last 24 hours 06/28/21 06/28/21 06/28/21 06:14 06:14 06:14 WBC 12.65 H RBC 4.32 L Hgb 12.9 L Hct 37.3 L MCV 86.3 MCH 29.9 MCHC 34.6 RDW 13.4 Plt Count 166 MPV 9.2 Immature Gran % 0.6 Neutrophils % 84.1 Lymphocytes % 6.9 Monocytes % 7.7 Eosinophils % 0.5 Basophils % 0.2 Nucleated RBC % 0 Absolute Neutrophils 10.64 H Absolute Lymphocytes 0.87 L Absolute Monocytes 0.97 H Absolute Eosinophils 0.06 Absolute Basophils 0.03 VBG Lactate Sodium 136 Potassium 3.6 Chloride 102 Carbon Dioxide 25.9 Anion Gap 8.1 BUN 6 L Creatinine 0.9 Estimated GFR/1.73 m2 >= 60.00 Glucose 155 H Hemoglobin A1c 5.8 H Calcium 8.6 Magnesium 1.9 Total Bilirubin 1.5 H Conjugated Bilirubin 0.3 H AST 61 H ALT 124 H Alkaline Phosphatase 114 Troponin I 100 H* C-Reactive Protein 10.45 H NT-Pro-B Natriuret Pep 731 H Total Protein 7.2 Albumin 3.5 Triglycerides 114 Total Cholesterol 109 LDL Cholesterol, Calc 72 HDL Cholesterol 15 L TSH 0.92 Urine Color Urine Clarity Urine pH Ur Specific [place] Urine Protein Urine Ketones Urine Blood Urine Nitrite Urine Bilirubin Urine Urobilinogen Ur Leukocyte Esterase Urine RBC Urine WBC Ur Epithelial Cells Urine Crystals Urine Bacteria Urine Casts Urine Mucus Ur Culture Indicated? Urine Glucose COVID-19 Source SARS-CoV-2 (PCR) 06/27/21 06/27/21 06/27/21 17:40 16:20 13:19 WBC RBC Hgb Hct MCV MCH MCHC RDW Plt Count MPV Immature Gran % Neutrophils % Lymphocytes % Monocytes % Eosinophils % Basophils % Nucleated RBC % Absolute Neutrophils Absolute Lymphocytes Absolute Monocytes Absolute Eosinophils Absolute Basophils VBG Lactate Sodium Potassium Chloride Carbon Dioxide Anion Gap BUN Creatinine Estimated GFR/1.73 m2 Glucose Hemoglobin A1c Calcium Magnesium Total Bilirubin Conjugated Bilirubin AST ALT Alkaline Phosphatase Troponin I 101 H* 103 H* C-Reactive Protein NT-Pro-B Natriuret Pep Total Protein Albumin Triglycerides Total Cholesterol LDL Cholesterol, Calc HDL Cholesterol TSH Urine Color Urine Clarity Urine pH Ur Specific [place] Urine Protein Urine Ketones Urine Blood Urine Nitrite Urine Bilirubin Urine Urobilinogen Ur Leukocyte Esterase Urine RBC Urine WBC Ur Epithelial Cells Urine Crystals Urine Bacteria Urine Casts Urine Mucus Ur Culture Indicated? Urine Glucose COVID-19 Source Nasal/Nares SARS-CoV-2 (PCR) Negative 06/27/21 06/27/21 06/27/21 13:19 13:19 13:19 WBC 14.11 H RBC 4.51 Hgb 13.4 L Hct 38.2 L MCV 84.7 MCH 29.7 MCHC 35.1 RDW 13.2 Plt Count 191 MPV 8.9 Immature Gran % 0.5 Neutrophils % 83.1 Lymphocytes % 6.4 Monocytes % 9.5 Eosinophils % 0.4 Basophils % 0.1 Nucleated RBC % 0 Absolute Neutrophils 11.73 H Absolute Lymphocytes 0.90 L Absolute Monocytes 1.34 H Absolute Eosinophils 0.06 Absolute Basophils 0.01 VBG Lactate 1.0 Sodium 134 L Potassium 3.2 L Chloride 97 L Carbon Dioxide 26.2 Anion Gap 10.8 BUN 5 L Creatinine 0.8 Estimated GFR/1.73 m2 >= 60.00 Glucose 143 H Hemoglobin A1c Calcium 8.8 Magnesium Total Bilirubin 1.2 H Conjugated Bilirubin 0.2 AST 90 H ALT 156 H Alkaline Phosphatase 118 H Troponin I C-Reactive Protein NT-Pro-B Natriuret Pep Total Protein 7.3 Albumin 3.9 Triglycerides Total Cholesterol LDL Cholesterol, Calc HDL Cholesterol TSH Urine Color Urine Clarity Urine pH Ur Specific [place] Urine Protein Urine Ketones Urine Blood Urine Nitrite Urine Bilirubin Urine Urobilinogen Ur Leukocyte Esterase Urine RBC Urine WBC Ur Epithelial Cells Urine Crystals Urine Bacteria Urine Casts Urine Mucus Ur Culture Indicated? Urine Glucose COVID-19 Source SARS-CoV-2 (PCR) 06/27/21 12:41 WBC RBC Hgb Hct MCV MCH MCHC RDW Plt Count MPV Immature Gran % Neutrophils % Lymphocytes % Monocytes % Eosinophils % Basophils % Nucleated RBC % Absolute Neutrophils Absolute Lymphocytes Absolute Monocytes Absolute Eosinophils Absolute Basophils VBG Lactate Sodium Potassium Chloride Carbon Dioxide Anion Gap BUN Creatinine Estimated GFR/1.73 m2 Glucose Hemoglobin A1c Calcium Magnesium Total Bilirubin Conjugated Bilirubin AST ALT Alkaline Phosphatase Troponin I C-Reactive Protein NT-Pro-B Natriuret Pep Total Protein Albumin Triglycerides Total Cholesterol LDL Cholesterol, Calc HDL Cholesterol TSH Urine Color [place] Urine Clarity Clear Urine pH Ur Specific [place] 1.005 Urine Protein Urine Ketones Urine Blood Urine Nitrite Urine Bilirubin Urine Urobilinogen Ur Leukocyte Esterase Urine RBC Negative Urine WBC Negative Ur Epithelial Cells Few Urine Crystals Negative Urine Bacteria Negative Urine Casts Negative Urine Mucus Trace Ur Culture Indicated? C&S Done As Ordered Urine Glucose COVID-19 Source SARS-CoV-2 (PCR) 06/27/21 13:50 Blood Blood Culture - Pending 06/27/21 13:19 Blood Blood Culture - Pending 06/27/21 12:41 Urine - Clean Catch Urine Culture - Pending Preliminary micro results at discharge 06/27/21 13:50 Blood Culture - Pending Blood 06/27/21 13:19 Blood Culture - Pending Blood 06/27/21 12:41 Urine Culture - Pending Urine - Clean Catch PFSH All Active Problems Discharge planning issues (Acute) DVT prophylaxis (Acute) Urinary retention (Acute) RBBB (Acute) Prostatitis (Acute) Elevated troponin (Acute) Medical History Aortic stenosis CAD (coronary artery disease) Hyperlipidemia Hypertension Palpitations TIA (transient ischemic attack) Tubular adenoma Surgical History Hx of colonoscopy S/P aortic valve replacement with bioprosthetic valve S/P CABG x 3 [place] [facility] [place] Family History Father Heart disease Cancer prostate cancer Brother Heart disease Hypertension Mother Cancer unknown type Social History Smoking/Tobacco Use Status: Former Tobacco Use tobacco type: cigarettes Quit Date: 03/23/79 Pack-years: 5 Tobacco: How many years used: 5 Smoking risk assessment performed?: Yes Alcohol Intake: current Alcohol Intake frequency: 0-2 drinks per day Alcohol type: hard liquor Details: no h/o EtOH withdrawal Drug use: Never Substance use type: does not use Do you feel safe at home: Yes Do you feel safe in your relationship?: Yes
[2021-06-28] MEDS: levoFLOXacin 500 MG, levoFLOXacin 250 MG 750 MG PO (12:22)
[2021-06-28 12:25] VITALS: BP 148/79; PULSE 74; RESP 18; TEMP 37.7; O2SAT 96
[2021-06-28 14:02] VITALS: PULSE 75
--- NOTE | 2021-06-28 14:35 | CMDISCH_ITS ---
- If Service Date Differs Date of service: 06/28/21 Time of Service: 14:35 LACE Index Scoring Tool - Questions: Length of Stay (in days): 1 Acuity (Admit via E.D.?): Yes Comorbidities: Previous M.I., Any Tumor E.D. Visits: 1 - Answers: Total Score: 8 Risk of Readmission: Low Risk Care Management Discharge Reason for Hospitalization: Prostatitis, Elevated Troponin, RBBB, Urinary Retention Discharge Plan: Discharge home via private vehicle with family. Follow discharge plan of care as prescribed with includes, follow up with Dr. Zapata 07/01/21 @ 2pm and PCP 07/04/21 @ 1230. Radiology will call patient to schedule an ECHO tomorrow. Mickey will also need outpatient follow up with ocular care technologist for further ischemic workup. No new VNA services are anticipated at this time. Patient/Family Education Needs: Review discharge instructions, limitations, medications and plan to follow up with community providers. Provide hubbard education and care instructions. ask me three.
== END 2021-06-28 14:22 | disposition home or self-care (01) ==
LOC: ER 17:39 → MS 19:20
PROVIDERS: Physician Assistant; Admitting Provider Internal Medicine; Emergency Provider Physician Assistant; PCP Family Medicine; Visit Provider Internal Medicine
DX: N41.0 Acute prostatitis (principal); I45.10 Unspecified right bundle-branch block; B96.1 Klebsiella pneumoniae [K. pneumoniae] as the cause of diseases classified elsewhere; Z20.822 Contact with and (suspected) exposure to COVID-19; R33.9 Retention of urine, unspecified; R74.8 Abnormal levels of other serum enzymes; I25.10 Atherosclerotic heart disease of native coronary artery without angina pectoris; Z95.5 Presence of coronary angioplasty implant and graft; Z86.73 Personal history of transient ischemic attack (TIA), and cerebral infarction without residual deficits; I10 Essential (primary) hypertension; E78.5 Hyperlipidemia, unspecified; Z95.3 Presence of xenogenic heart valve; N20.1 Calculus of ureter; Z87.891 Personal history of nicotine dependence; Z79.899 Other long term (current) drug therapy
CPT/HCPCS: 36415; 51702; 80048; 80061; 80076; 87040; 87635; 93005; 96361; 96365; 96372; 96375; 99285; J1650; 74177; 81003; 81015; 83036; 83605; 83735; 83880; 84443; 84484; 85025; 86140; 87086; 93010; 93306; 99217; 99220; G0378; J1956; J3010; J3490

== ENCOUNTER → 2021-07-11 13:45 | Outpatient (BNVA) | payer MEDICARE, OTHER, SELFPAY | PROVIDERS: PCP Family Medicine; Visit Provider Urology | DX: R33.8 Other retention of urine (principal); N20.1 Calculus of ureter | CPT/HCPCS: 99215 ==

== ENCOUNTER → 2021-07-17 07:48 | Outpatient (BNVA) | payer MEDICARE, OTHER, SELFPAY | PROVIDERS: PCP Family Medicine; Referring Provider Family Medicine; Visit Provider Nurse Practitioner Gerontology | DX: R33.8 Other retention of urine (principal) | CPT/HCPCS: 99214 ==

== ENCOUNTER → 2021-07-31 13:41 | Outpatient (BNVA) | payer MEDICARE, OTHER, SELFPAY | PROVIDERS: PCP Family Medicine; Referring Provider Family Medicine; Visit Provider Nurse Practitioner Gerontology | DX: R33.8 Other retention of urine (principal) | CPT/HCPCS: 51798; 99214 ==

== ENCOUNTER → 2021-09-18 13:44 | Outpatient (BNVA) | payer MEDICARE, OTHER, SELFPAY | PROVIDERS: PCP Family Medicine; Referring Provider Family Medicine; Visit Provider Nurse Practitioner Gerontology | DX: N40.1 Benign prostatic hyperplasia with lower urinary tract symptoms (principal); R33.8 Other retention of urine | CPT/HCPCS: 36415; 51798; 99214 ==

== ENCOUNTER 2021-09-18 14:38 | Outpatient (REF) | payer MEDICARE, OTHER, SELFPAY ==
[2021-09-18 23:05] LABS: PSA, Screening 3.6 ng/mL (<=6.5)
== END 2021-09-18 14:39 | disposition home or self-care (01) ==
LOC: LBN 14:38
PROVIDERS: PCP Family Medicine; Visit Provider Nurse Practitioner Gerontology
DX: N41.8 Other inflammatory diseases of prostate (principal); R33.8 Other retention of urine; Z12.5 Encounter for screening for malignant neoplasm of prostate
CPT/HCPCS: 84153

== ENCOUNTER → 2021-12-17 13:54 | Outpatient (BNVA) | payer MEDICARE, OTHER, SELFPAY | PROVIDERS: PCP Family Medicine; Referring Provider Family Medicine; Visit Provider Nurse Practitioner Gerontology | DX: R35.1 Nocturia (principal); N40.1 Benign prostatic hyperplasia with lower urinary tract symptoms; R33.8 Other retention of urine; N41.9 Inflammatory disease of prostate, unspecified | CPT/HCPCS: 51798; 99214 ==

== ENCOUNTER 2022-03-12 01:44 | Outpatient (CLI) | payer MEDICARE, OTHER, SELFPAY ==
[2022-03-12 18:00] LABS: PSA, Screening 3.5 ng/mL (<=6.5)
== END 2022-03-12 01:45 | disposition home or self-care (01) ==
LOC: LBO 01:44
PROVIDERS: PCP Family Medicine; Visit Provider Nurse Practitioner Gerontology
DX: N40.1 Benign prostatic hyperplasia with lower urinary tract symptoms (principal); Z12.5 Encounter for screening for malignant neoplasm of prostate; Z80.42 Family history of malignant neoplasm of prostate
CPT/HCPCS: 36415; 84153

== ENCOUNTER → 2022-03-19 09:26 | Outpatient (BNVA) | payer MEDICARE, OTHER, SELFPAY | PROVIDERS: PCP Family Medicine; Referring Provider Family Medicine; Visit Provider Nurse Practitioner Gerontology | DX: N40.1 Benign prostatic hyperplasia with lower urinary tract symptoms (principal); R33.8 Other retention of urine | CPT/HCPCS: 51798; 99213 ==

== ENCOUNTER 2022-09-10 02:47 | Outpatient (CLI) | payer MEDICARE, SELFPAY ==
[2022-09-10 18:11] LABS: PSA, Screening 3.2 ng/mL (<=6.5)
== END 2022-09-10 02:48 | disposition home or self-care (01) ==
LOC: LBO 02:47
PROVIDERS: PCP Family Medicine; Visit Provider Nurse Practitioner Gerontology
DX: N40.1 Benign prostatic hyperplasia with lower urinary tract symptoms (principal); Z12.5 Encounter for screening for malignant neoplasm of prostate; Z80.42 Family history of malignant neoplasm of prostate
CPT/HCPCS: 36415; 84153

== ENCOUNTER → 2022-09-17 09:17 | Outpatient (BNVA) | payer MEDICARE, SELFPAY | PROVIDERS: PCP Family Medicine; Visit Provider Nurse Practitioner Gerontology | DX: N40.1 Benign prostatic hyperplasia with lower urinary tract symptoms (principal); R39.89 Other symptoms and signs involving the genitourinary system; R33.8 Other retention of urine | CPT/HCPCS: 51798; 99213 ==

== ENCOUNTER 2023-03-11 03:51 | Outpatient (CLI) | payer MEDICARE, SELFPAY ==
[2023-03-11 17:46] LABS: PSA, Diagnostic 2.8 ng/mL (<=6.5)
== END 2023-03-11 03:52 | disposition home or self-care (01) ==
LOC: LBO 03:51
PROVIDERS: PCP Family Medicine; Visit Provider Nurse Practitioner Gerontology
DX: N40.1 Benign prostatic hyperplasia with lower urinary tract symptoms (principal); Z80.42 Family history of malignant neoplasm of prostate
CPT/HCPCS: 36415; 84153

== ENCOUNTER → 2023-03-18 09:20 | Outpatient (BNVA) | payer MEDICARE, SELFPAY | PROVIDERS: PCP Family Medicine; Referring Provider Family Medicine; Visit Provider Nurse Practitioner Gerontology | DX: N40.1 Benign prostatic hyperplasia with lower urinary tract symptoms (principal); R35.1 Nocturia; Z80.42 Family history of malignant neoplasm of prostate | CPT/HCPCS: 51798; 99213 ==

== ENCOUNTER 2023-08-25 04:58 | Outpatient (CLI) | payer MEDICARE, SELFPAY ==
[2023-08-25 19:12] LABS: PSA, Diagnostic 3.4 ng/mL (<=6.5)
== END 2023-08-25 04:59 | disposition home or self-care (01) ==
LOC: LBO 04:58
PROVIDERS: PCP Family Medicine; Visit Provider Nurse Practitioner Gerontology
DX: N40.1 Benign prostatic hyperplasia with lower urinary tract symptoms (principal)
CPT/HCPCS: 36415; 84153

== ENCOUNTER → 2023-09-01 08:18 | Outpatient (BNVA) | payer MEDICARE, SELFPAY | PROVIDERS: PCP Family Medicine; Referring Provider Family Medicine; Visit Provider Nurse Practitioner Gerontology | DX: N40.1 Benign prostatic hyperplasia with lower urinary tract symptoms (principal); Z80.42 Family history of malignant neoplasm of prostate; R33.8 Other retention of urine; N41.9 Inflammatory disease of prostate, unspecified | CPT/HCPCS: 51798; 99213 ==

== ENCOUNTER 2024-06-28 02:19 | Outpatient (CLI) | payer MEDICARE, SELFPAY ==
[2024-06-28 18:29] LABS: PSA, Diagnostic 2.7 ng/mL (<=6.5)
== END 2024-06-28 02:20 | disposition home or self-care (01) ==
LOC: LBO 02:19
PROVIDERS: PCP Family Medicine; Visit Provider Nurse Practitioner Gerontology
DX: N40.1 Benign prostatic hyperplasia with lower urinary tract symptoms (principal); Z80.42 Family history of malignant neoplasm of prostate
CPT/HCPCS: 36415; 84153

== ENCOUNTER → 2024-07-05 08:20 | Outpatient (BNVA) | payer MEDICARE, SELFPAY | PROVIDERS: PCP Family Medicine; Referring Provider Family Medicine; Visit Provider Nurse Practitioner Gerontology | DX: R33.8 Other retention of urine (principal); N40.1 Benign prostatic hyperplasia with lower urinary tract symptoms; Z80.42 Family history of malignant neoplasm of prostate; N39.9 Disorder of urinary system, unspecified; Z87.438 Personal history of other diseases of male genital organs | CPT/HCPCS: 51798; 99214 ==

== ENCOUNTER → 2025-01-18 09:54 | Outpatient (BNVA) | payer MEDICARE, SELFPAY | PROVIDERS: PCP Family Medicine; Referring Provider Family Medicine; Visit Provider Nurse Practitioner Gerontology | DX: N20.2 Calculus of kidney with calculus of ureter (principal); N40.1 Benign prostatic hyperplasia with lower urinary tract symptoms | CPT/HCPCS: 99214; 81002 ==

== ENCOUNTER → 2025-02-02 02:30 | Outpatient (CLI) | payer MEDICARE, SELFPAY ==
--- NOTE | 2025-02-02 07:45 | DI.US_ITS ---
Exam(s) US RENAL EXAM: US RENAL CLINICAL HISTORY: ? left hydro,bladder stone,n21.0.n20.1. TECHNIQUE: [place] scale imaging and color doppler were used. COMPARISON: CT CT Abdomen and Pelvis w/o Contrast from 01/10/2025 FINDINGS: Right kidney: 11.3cm Echogenicity: Normal Hydronephrosis: No Cyst or mass: No Nephrolithiasis: No Left kidney: 11.4cm Echogenicity: Normal Hydronephrosis: No Cyst or mass: No Nephrolithiasis: 3 millimeter stone superior pole Bladder:Thickened wall. No focal mass visible. 1.6 centimeter stone noted within the bladder. Prevoid vol:116 cc Postvoid vol:49 cc Prostate: Enlarged at 41 cc. IMPRESSION: No evidence of hydronephrosis. 3 millimeter stone upper pole left kidney. Enlarged prostate and thickened bladder wall. Elevated postvoid residual. Bladder calculus. DATA REPOSITORY:
== END ==
LOC: DI 02:30
PROVIDERS: PCP Family Medicine; Visit Provider Nurse Practitioner Gerontology
DX: N21.0 Calculus in bladder (principal); N20.1 Calculus of ureter
CPT/HCPCS: 76770